=== PATIENT | male | born 1955 | race Caucasian/White ===

== ENCOUNTER 2017-10-30 20:06 | Emergency (ER) | payer OTHER ==
[~2017-10-30] VITALS: Ht 172.7 cm; Wt 111.1 kg
[2017-10-30 20:27] VITALS: BP 163/100
== END 2017-10-30 23:28 | disposition left against medical advice (07) ==
LOC: ER 20:06 → EDUNIT# 20:06 → EDBD 20:06 → ER 23:28
DX: T54.91XA Toxic effect of unspecified corrosive substance, accidental (unintentional), initial encounter (principal); Z53.21 Procedure and treatment not carried out due to patient leaving prior to being seen by health care provider; Y92.9 Unspecified place or not applicable